=== PATIENT | female | born 1960 | race Caucasian/White ===

== ENCOUNTER 2017-11-30 08:04 | Outpatient (CLI) | payer OTHER ==
--- NOTE | 2017-11-30 10:09 | BD ---
DEXA BONE MINERAL DENSITY SCAN: HISTORY: Osteoporosis. Patient with left hip replacement. TECHNIQUE: Bone marrow density evaluation of the lumbar spine and right hip is performed using hologic bone mine ral density unit. COMPARISON: Comparison study is not available. FINDINGS: Lumbar Spine: BMD (g/cm2) L1 0.96 T-Score: -0.3 Z-Score: 0.8 L2 1.01 T-Score: -0.2 Z-Score: 1.0 L3 0.99 T-Score: -0.9 Z-Score: 0.4 L4 1.01 T-Score: -0.4 Z-Score: 0.9 L1-L4 0.99 T-Score: -0.5 Z-Score: 0.8 RIGHT HIP: Femoral Neck: 0.84 T-Score: -0.1 Z-Score: 1.1 Total Femur: 0.90 T-Score: -0.3 Z-Score: +0.5 The patient has the following FRAX score risk: 10-year fracture risk as follows: Major osteoporotic fracture 6.6%; hip fracture risk of 0.2%. Impression: Normal bone mineral density. No significant increased risk of osteoporotic fracture is seen. POS: [facility]
== END 2017-11-30 08:05 | disposition home or self-care (01) ==
LOC: BICMAMMO 08:04
PROVIDERS: ATTEND Obstetrics & Gynecology Obstetrics
DX: Z12.31 Encounter for screening mammogram for malignant neoplasm of breast (principal); Z13.820 Encounter for screening for osteoporosis
CPT/HCPCS: 77063; 77067; 77080

== ENCOUNTER 2020-12-29 09:25 | Outpatient (CLI) | payer OTHER | END 2020-12-29 09:26 | disposition home or self-care (01) | LOC: BICMAMMO 09:25 | PROVIDERS: ATTEND Obstetrics & Gynecology Obstetrics | DX: Z12.31 Encounter for screening mammogram for malignant neoplasm of breast (principal) | CPT/HCPCS: 77063; 77067 ==